=== PATIENT | male | born 1940 | race Caucasian/White ===

== ENCOUNTER → 2020-11-18 | Outpatient (CLI) | payer OTHER ==
--- NOTE | 2020-11-18 12:41 | 2DMMODE ---
[facility] [address] [place] [address] 2 D/M-MODE ECHOCARDIOGRAM Name: BREE ALTMAN Room #: REG NINFA [facility]or.#: [id number] Admission: 11/18/20 Attend Phys: Gonsalo Novak MD Discharge: Date of : 38 Report #: [id number] THIS REPORT FOR: cc: Wai Rodriguez MD, Sequita MD Lammoglia, Francisco J. MD ~ APPROVED REPORT Study performed: 11/18/2020 11:33:56 EXAM: Comprehensive 2D, Doppler, and color-flow Echocardiogram Patient Location: Out-Patient Status: routine BSA: 1.87 HR: 67 bpm Rhythm: Pacemaker Other Information Study Quality: Adequate Indications CVA. Hx: Pacemaker. Echo Enhancing Agent Indication: Rule out Shunt Agent(s) / Amount(s) Used: Agitated Saline 7 cc 2D Dimensions RVDd: 29.00 mm IVSd: 9.00 (7-11mm) LVOT Diam: 22.00 (18-24mm) LVDd: 50.00 mm PWd: 9.00 (7-11mm) Ascending Ao: 34.00 (22-36mm) LVDs: 28.00 (25-40mm) Left Atrium: 25.25 (27-40mm) Aortic Root: 41.00 mm Volumes Left Atrial Volume (Systole) Single Plane 4CH: 35.53 mL Single Plane 2CH: 40.22 mL LA ESV Index: 23.00 mL/m2 [facility] [address] [place] [address] 2 D/M-MODE ECHOCARDIOGRAM Name: ANUPAMABREE JARAMILLO Room #: REG [facility].#: [id number] Admission: 11/18/20 Attend Phys: Gonsalo Novak, Discharge: Date of : 38 Report #: [id number] Aortic Valve AoV Peak Elliott.: 1.03 m/s AO Peak Gr.: 4.20 mmHg LVOT Max P.58 mmHg LVOT Max V: 0.95 m/s RUBEN Vmax: 3.42 cm2 Mitral Valve E/A Ratio: 0.7 MV Decel. Time: 192.94 ms MV E Max Elliott.: 0.58 m/s MV A Elliott.: 0.79 m/s MV PHT: 55.95 ms IVRT: 101.50 ms Pulmonary Valve PV Peak Elliott.: 0.59 m/s PV Peak Gr.: 1.42 mmHg Pulmonary Vein P Vein S: 0.54 m/s P Vein A: 0.28 m/s P Vein D: 0.37 m/s P Vein A Dur.: 124.6 msec P Vein S/D Ratio: 1.46 Tricuspid Valve TR Peak Elliott.: 2.70 m/s RAP Estimate: 5.00 mmHg TR Peak Gr.: 29.21 mmHg PA Pressure: 34.00 mmHg Left Ventricle The left ventricle is normal size. There is normal LV segmental wall motion. There is normal left ventricular wall thickness. Left ventricular systolic function is normal. LVEF is 55-60%. Mild diastolic dysfunction is present (impaired relaxation pattern). Right Ventricle The right ventricle is normal size. The right ventricular systolic function is normal. Pacemaker lead is present in the right ventricle. Atria The left atrium size is normal. Positive bubble study with small amount of right to left shunting consistent with probable PFO. The right atrium size is normal. Aortic Valve The Aortic valve is mildly sclerotic. Mild aortic regurgitation. There is no aortic valvular stenosis. [facility] [address] [place] [address] 2 D/M-MODE ECHOCARDIOGRAM Name: BREE ALTMAN [place] Room #: REG [facility]#: [id number] Admission: 11/18/20 Attend Phys: Gonsalo Novak, Discharge: Date of : 38 Report #: [id number] Mitral Valve The mitral valve is normal in structure. Trace to mild mitral regurgitation. No evidence of mitral valve stenosis. Tricuspid Valve The tricuspid valve is normal in structure. Mild to moderate tricuspid regurgitation. Estimated PAP is 35mmHg. Pulmonic Valve The pulmonary valve is normal in structure. There is no pulmonic valvular regurgitation. 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 Ascending aorta is not well visualized. IVC is normal in size and collapses >50% with inspiration. Pericardium There is no pericardial effusion. <Conclusion> The left ventricle is normal size. Left ventricular systolic function is normal. LVEF is 55-60%. The right ventricle is normal size. Pacemaker lead is present in the right ventricle. The left atrium size is normal. The right atrium size is normal. The Aortic valve is mildly sclerotic. Mild aortic regurgitation. The mitral valve is normal in structure. Trace to mild mitral regurgitation. The tricuspid valve is normal in structure. Mild to moderate tricuspid regurgitation. Estimated PAP is 35mmHg. The pulmonary valve is normal in structure. 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 There is no pericardial effusion. Positive bubble study with small amount of right to left shunting consistent with probable PFO. <ELECTRONICALLY SIGNED> By: Avel Calzada MD 11/18/20 1241 1241 124 Avel Calzada MD /INF
--- NOTE | 2020-12-07 12:46 | EEG ---
[facility] [place] [address] ELECTROENCEPHALOGRAM Name: BREE ALTMAN Room #: REG [facility] M..#: [id number] Admission: 11/18/20 Attend Phys: Gonsalo Novak MD Discharge: Date of : 38 Report #: [id number] THIS REPORT FOR: //name// DOC #: [id number] Gonsalo Novak MD DATE OF SERVICE: 11/18/2020 This patient is being evaluated for episodic memory loss. EEG was done by placing the electrode by standard 10-20 system of electrode placement. Both referential and sequential montages were used for recording. Background activity is about 9 Hz and 30 microvolt. The patient became drowsy that is associated with bilateral slowing. Photic stimulation is unremarkable. Throughout the record, no active epileptiform activity was noticed. IMPRESSION: This patient's EEG is within normal limits. Thank you very much for this referral. Gonsalo Novak MD PK/NOO <ELECTRONICALLY SIGNED> By: Gonsalo Novka MD 12/07/20 1246 1443 1620 Gonsalo Novak MD /nt
== END ==
LOC: NEURO 10:14
PROVIDERS: ATTEND Psychiatry & Neurology Neuromuscular Medicine
DX: I08.3 Combined rheumatic disorders of mitral, aortic and tricuspid valves (principal); I63.9 Cerebral infarction, unspecified; Z95.0 Presence of cardiac pacemaker

== ENCOUNTER → 2020-11-30 | Outpatient (CLI) | payer OTHER | LOC: SJCVC 13:07 | PROVIDERS: ATTEND Internal Medicine Cardiovascular Disease | DX: R94.31 Abnormal electrocardiogram [ECG] [EKG] (principal); I49.1 Atrial premature depolarization; I45.2 Bifascicular block; R06.00 Dyspnea, unspecified; G45.9 Transient cerebral ischemic attack, unspecified; E11.9 Type 2 diabetes mellitus without complications; I10 Essential (primary) hypertension; E78.5 Hyperlipidemia, unspecified; E78.00 Pure hypercholesterolemia, unspecified; Z72.0 Tobacco use; Z95.0 Presence of cardiac pacemaker; Z79.82 Long term (current) use of aspirin; Z79.84 Long term (current) use of oral hypoglycemic drugs; Z79.899 Other long term (current) drug therapy ==

== ENCOUNTER → 2020-12-08 | Outpatient (CLI) | payer OTHER ==
[2020-12-08 13:37] LABS: POTASSIUM 4.7 mmol/L (3.5-5.1)
[2020-12-08 13:44] LABS: CALCIUM 7.8 mg/dL (8.5-10.1); CREATININE 0.9 mg/dL (0.7-1.3)
== END ==
LOC: CAT 08:37 → ULTRA 10:40 → CAT 12:58
PROVIDERS: ATTEND Psychiatry & Neurology Neuromuscular Medicine
DX: G31.89 Other specified degenerative diseases of nervous system (principal); G45.9 Transient cerebral ischemic attack, unspecified

== ENCOUNTER → 2020-12-17 | Outpatient (CLI) | payer OTHER | LOC: SJCVCIMAG 09:06 | PROVIDERS: ATTEND Internal Medicine Cardiovascular Disease | DX: I45.10 Unspecified right bundle-branch block (principal); I45.2 Bifascicular block; R00.0 Tachycardia, unspecified; R06.09 Other forms of dyspnea; I10 Essential (primary) hypertension; E78.00 Pure hypercholesterolemia, unspecified; G45.9 Transient cerebral ischemic attack, unspecified; E11.9 Type 2 diabetes mellitus without complications; E78.5 Hyperlipidemia, unspecified; F17.210 Nicotine dependence, cigarettes, uncomplicated; Z79.899 Other long term (current) drug therapy; Z79.82 Long term (current) use of aspirin; Z86.73 Personal history of transient ischemic attack (TIA), and cerebral infarction without residual deficits; Z79.84 Long term (current) use of oral hypoglycemic drugs; Z72.89 Other problems related to lifestyle ==

== ENCOUNTER → 2021-01-27 | Outpatient (CLI) | payer OTHER | LOC: SJCVC 10:04 | PROVIDERS: ATTEND Internal Medicine Cardiovascular Disease | DX: R94.31 Abnormal electrocardiogram [ECG] [EKG] (principal); I45.2 Bifascicular block; R06.09 Other forms of dyspnea; I10 Essential (primary) hypertension; E78.00 Pure hypercholesterolemia, unspecified; G45.9 Transient cerebral ischemic attack, unspecified; Z95.0 Presence of cardiac pacemaker; Z79.899 Other long term (current) drug therapy; Z79.84 Long term (current) use of oral hypoglycemic drugs; Z79.82 Long term (current) use of aspirin; Z72.89 Other problems related to lifestyle ==

== ENCOUNTER 2021-07-05 11:43 | Emergency (ER) | payer OTHER ==
[~2021-07-05] VITALS: Ht 154.9 cm; Wt 66.2 kg
--- NOTE | ~2021-07-05 | EMS ---
[address] [address] EMS Patient Care Report Name: BREE ALTMAN Room #: DEP BALWINDER Gomes#: [id number] Admission: 07/05/21 Attend Phys: Discharge: 07/05/21 Date of : 38 Report #: [id number] THIS REPORT FOR: //name// Report Transmitted: 07/06/2021 07:02 EMS Care Summary [place], [place]/[facility] Incident [id number] @ 07/05/2021 11:00 Incident Location [address] [place] [address] Patient BREE ALTMAN Male, 80 Years 1940 Patient Address [address] [place] [address] Patient History Diabetes,Pacemaker/AICD, Patient Allergies No known allergies, Patient Medications Clopidogrel, Chief Complaint WEAKNESS Disposition Transported No Lights/[place] Dispatch Reason Sick Person Transported To [facility] Narrative ARRIVED TO FIND PT SITTING IN A CHAIR. PT FRIEND ON SCENE STATES PT HAS BEEN WEAK AND NOT EATING AND DRINKING LIKE HE NORMALLY DOES FOR THE PAST 3 WEELS. ALS ASSESSMENT VITALS OBTAINED. PT REPORTS THAT HE HAS NOT TAKEN ANY OF HIS PERSCRIBED MEDICATION FOR THE PAST 2 WEEKS DUE TO NOT FEELING WELL, INCLUDING [facility] [address] [place] [address] EMS Patient Care Report Name: BREE ALTMAN Room #: DEP Windy#: [id number] Admission: 07/05/21 Attend Phys: Discharge: 07/05/21 Date of : 38 Report #: [id number] [place]. PT STATES HE IS UNSURE WHY HE TAKES A BLOOD THINNER. PT ASSISTED WALK TO COT, SECURED WITH STRAPS X2, LOADED WITHOUT INCIDENT. ENROUTE, PT FOUND TO HAVE A FASTER, WEAKER RADIAL PULSE. PT FOUND TO BE IN A PACED RHYTHM. PT STATE HE DID NOT REALISE THAT HIS PACEMAKER WAS PART OF HIS MEDICAL HX. ARRIVED. PT TAKEN INSIDE ON COT TO ER 2. PT MOVED TO BED RAILS RAISED X2. REPORT GIVEN TO NURSE, PT CARE TRANSFERRED. Initial Vitals @11:28P: 86,R: 16,BP: 152/91,Pain: 0/10,GCS: 15,CO: 2,SpO2: 94,Revised Trauma: 12, @11:15P: 76,R: 16,BP: 134/82,Pain: 0/10,GCS: 15,Glucose: 152,CO: 2,SpO2: 94,Revised Trauma: 12, @11:37P: 115,R: 16,Pain: 0/10,GCS: 15,SpO2: 95, Assessments @11:10MENTAL:Event Oriented,Time Oriented,Place Oriented,Person Oriented,SKIN:HEENT:Head/Face: No Abnormalities,Eyes: No Abnormalities,Neck/Airway: No Abnormalities,LUNG SOUNDS:ABDOMEN:PELVIS//GI:EXTREMITIES:PULSE:NEURO: Impression Generalized Weakness Procedures @11:10 ALS Assessment Response: UnchangedSucceeded Timeline 10:59,Call Received 10:59,Dispatch Notified 11:00,Dispatched 11:02,En Route 11:09,On Scene 11:10,At Patient 11:10,ALS Assessment,Response: UnchangedSucceeded, 11:15,BP: 134/82 M,PULSE: 76,RR: 16 R,SPO2: 94 Ox,ETCO2: ,B,PAIN: 0,GCS: 15, 11:28,Depart Scene 11:28,BP: 152/91 M,PULSE: 86,RR: 16 R,SPO2: 94 Ox,ETCO2: ,BG: ,PAIN: 0,GCS: 15, 11:37,BP: / M,PULSE: 115,RR: 16 R,SPO2: 95 Ox,ETCO2: ,BG: ,PAIN: 0,GCS: 15, 11:38,At Destination 11:50,Call Closed [facility] [address] [place] [address] EMS Patient Care Report Name: BREE ALTMAN CLINT Room #: DEP Eliseo#: [id number] Admission: 07/05/21 Attend Phys: Discharge: 07/05/21 Date of : 38 Report #: [id number] Disclaimer [email or web address] Copyright 2021 [employer] This EMS Care Summary contains data elements from the applicable legal record (which may be displayed differently). It is designed to provide pertinent information for the following purposes: continuity of care, clinical quality, and state data reporting. The complete legal record is available to ED staff and administrators of the receiving hospital in [employer]'s Patient Tracker. All data is provided "as is."
[2021-07-05 11:59] LABS: ABSOLUTE NEUTROPHILS 3.5 thou/uL (1.4-8.2); BASOPHILS 0.2 % (0.0-2.0); EOSINOPHILS 0.5 % (0.0-3.0); HEMATOCRIT 42.6 % (42.0-52.0); HEMOGLOBIN 14.3 gm/dL (14.0-18.0); LYMPHOCYTES 12.4 % (24.0-44.0); MCH 30.6 pg (26.0-34.0); MCHC 33.5 g/dL (28.0-37.0); MCV 91.4 fL (80.0-100.0); MONOCYTES 12.9 % (1.0-8.0); PLATELET COUNT 290 thou/uL (150-400); RBC 4.66 mil/uL (4.50-6.00); RDW 13.3 % (10.5-14.5); WBC 4.7 thou/uL (4.0-11.0)
[2021-07-05 12:10] LABS: POTASSIUM 3.8 mmol/L (3.5-5.1)
[2021-07-05 12:36] LABS: URINE BILIRUBIN NEGATIVE (Negative); URINE BLOOD TRACE (Negative); URINE CLARITY CLEAR; URINE COLOR YELLOW; URINE GLUCOSE-RANDOM* NEGATIVE (Negative); URINE KETONES 1+ (Negative); URINE LEUKOCYTES-REFLEX TRACE (Negative); URINE NITRITE-REFLEX NEGATIVE (Negative); URINE PROTEIN (DIPSTICK) 2+ (Negative)
[2021-07-05 12:49] LABS: TRIPLE PHOSPHATE CRYSTALS >10 Many /LPF (None Seen)
[2021-07-05 12:50] LABS: AMORPHOUS PHOSPHATES Few /LPF (None Seen); BACTERIA-REFLEX 1-9 Few /HPF (None Seen); CASTS None Seen /LPF (None Seen); SQUAMOUS None Seen /LPF (0-3); URINE RBC None Seen /HPF (NONE SEEN)
[2021-07-05 13:02] VITALS: BP 154/75
--- NOTE | 2021-07-05 16:12 | EKG ---
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
== END 2021-07-05 13:02 | disposition home or self-care (01) ==
LOC: ER 11:43
PROVIDERS: Emergency Medicine
DX: U07.1 COVID-19 (principal)

== ENCOUNTER → 2021-08-01 | Outpatient (CLI) | payer OTHER | LOC: SJCVC 10:46 | PROVIDERS: ATTEND Internal Medicine Cardiovascular Disease | DX: R94.31 Abnormal electrocardiogram [ECG] [EKG] (principal); I45.2 Bifascicular block; I10 Essential (primary) hypertension; E78.00 Pure hypercholesterolemia, unspecified; F17.200 Nicotine dependence, unspecified, uncomplicated; E11.9 Type 2 diabetes mellitus without complications; E78.5 Hyperlipidemia, unspecified; Z95.0 Presence of cardiac pacemaker; Z79.82 Long term (current) use of aspirin; Z79.899 Other long term (current) drug therapy; Z72.89 Other problems related to lifestyle ==